=== PATIENT | female | born 1950 | race Asian ===

== ENCOUNTER → 2016-04-29 | Outpatient (CLI) | payer OTHER ==
[~2016-04-29] MED LIST: ADALAT20 MG PO; ASPIRIN E.C. 8181 MG PO; CALCIUM500 MG PO; CARDI-OMEGA1000 MG PO; FOSAMAX70 MG PO; HCTZ 25MG TAB25 MG PO; HCTZ 25MG25 MG PO; LOTENSIN40 MG PO; MECLIZINE12.5 MG PO; VITAMIN D5000 IU PO; ZOCOR10 MG PO; [UNRECOGNIZED DRUG - OTHER] PO
== END ==
LOC: COL.RAD 07:53
DX: D25.9 Leiomyoma of uterus, unspecified (principal); N85.4 Malposition of uterus

== ENCOUNTER → 2019-12-13 | Outpatient (CLI) | payer MEDICARE, OTHER ==
[~2019-12-13] VITALS: Ht 149.9 cm; Wt 45.3 kg
[2019-12-13] VITALS (13 sets, daily range): BP systolic 152–194; BP diastolic 82–106; PULSE 90–105
[~2019-12-13] MED LIST changes: +COCONUT PO; +FIBER GUMMIES2.5 GM PO; +GLUCOSAMINE MSM1 TAB PO; +ONE-A-DAY ESSE1 EACH PO; +VITAMIN B COMPL1 SGL PO; +VITAMIN D 50,1.25 MG; -VITAMIN D5000 IU PO; +VITAMINC250CH PO; +XANAX 0.5MG0.5 MG PO; +ZOCOR 10MG10 MG PO
== END ==
LOC: COL.RAD 06:34
DX: M89.9 Disorder of bone, unspecified (principal)

== ENCOUNTER → 2020-02-13 | Outpatient (CLI) | payer MEDICARE, OTHER | LOC: COL.CARD 13:00 | DX: I08.3 Combined rheumatic disorders of mitral, aortic and tricuspid valves (principal); C34.12 Malignant neoplasm of upper lobe, left bronchus or lung ==

== ENCOUNTER → 2020-03-12 | Outpatient (CLI) | payer MEDICARE, OTHER | LOC: COL.CARD 11:01 | DX: C34.12 Malignant neoplasm of upper lobe, left bronchus or lung (principal) ==

== ENCOUNTER → 2020-10-30 | Outpatient (CLI) | payer MEDICARE, OTHER | LOC: COL.RAD 14:18 | DX: G93.9 Disorder of brain, unspecified (principal); C79.31 Secondary malignant neoplasm of brain | CPT/HCPCS: A9585 ==

== ENCOUNTER 2021-04-29 20:20 | Emergency (ER) | payer MEDICARE, OTHER ==
[~2021-04-29] VITALS: Ht 149.9 cm; Wt 44.1 kg
[2021-04-29 20:23] VITALS: TEMP 98
[2021-04-29 22:02] LABS: BASO % 0.4 % (0.0-2.0); EOS # 0.1 K/mm3 (0.0-0.7); EOS % 1.2 % (0.0-4.0); GRAN # 3.7 K/mm3 (1.4-6.5); HEMOGLOBIN 11.8 g/dl (12.5-16.0); LYMPH # 0.6 K/mm3 (1.2-3.4); LYMPH % 12.6 % (20.0-51.0); MEAN CELL VOLUME 68 fl (80.0-100.0); MEAN CORPUSCULAR HEMOGLOBIN 22 pg (27-31); MEAN CORPUSCULAR HGB CONC 33 g/dl (33.0-37.0); MEAN PLATELET VOLUME 9.4 fl (7.4-10.4); MONO # 0.5 K/mm3 (0.1-0.6); MONO % 10.6 % (1.7-9.3); PLATELET COUNT 138 K/mm3 (130-400); RED BLOOD COUNT 5.31 M/mm3 (4.10-5.30); REDCELL DISTRIBUTION WIDTH-CV 14.6 % (11.5-14.5)
[2021-04-29 22:06] LABS: ALANINE AMINOTRANSFERASE 9 U/L (0-55); ALBUMIN 3.9 gm/dL (3.4-4.8); ALKALINE PHOSPHATASE 41 U/L (40-150); ANION GAP 10 mmol/L (7-16); AST,SGOT 19 U/L (5-34); BILIRUBIN,TOTAL 0.8 mg/dL (0.2-1.2); BLOOD UREA NITROGEN 13 mg/dL (10-20); CALCIUM 8.4 mg/dL (8.4-10.2); CARBON DIOXIDE 20 mmol/L (23-31); CHLORIDE 100 mmol/L (98-107); CREATININE, serum 0.71 mg/dL (0.57-1.11); GLUCOSE 141 mg/dL (70-99); POTASSIUM 3.7 mmol/L (3.5-4.5); SODIUM 130 mmol/L (136-145); TOTAL PROTEIN 6.8 gm/dL (6.2-8.1)
[2021-04-29 22:17] LABS: TROPONIN-I < 0.010 ng/mL (0.00-0.033)
[2021-04-30 01:59] VITALS: BP 125/66; PULSE 71
== END 2021-04-30 01:59 | disposition home or self-care (01) ==
LOC: COL.ER 20:20
PROVIDERS: Personal Emergency Response Attendant
DX: R07.9 Chest pain, unspecified (principal); I10 Essential (primary) hypertension; Z79.899 Other long term (current) drug therapy
CPT/HCPCS: J2270; J2405; Q9967

== ENCOUNTER 2021-05-01 23:10 | Emergency (ER) | payer MEDICARE, OTHER ==
[~2021-05-01] VITALS: Ht 149.9 cm; Wt 59.1 kg
[2021-05-01 23:20] VITALS: TEMP 97.5
[2021-05-02 00:17] LABS: BASO % 0.5 % (0.0-2.0); EOS # 0.1 K/mm3 (0.0-0.7); EOS % 2.1 % (0.0-4.0); GRAN # 2.6 K/mm3 (1.4-6.5); GRAN % 68.5 % (42.2-75.2); HEMOGLOBIN 12.3 g/dl (12.5-16.0); LYMPH # 0.4 K/mm3 (1.2-3.4); LYMPH % 11.5 % (20.0-51.0); MEAN CELL VOLUME 67 fl (80.0-100.0); MEAN CORPUSCULAR HEMOGLOBIN 23 pg (27-31); MEAN CORPUSCULAR HGB CONC 34 g/dl (33.0-37.0); MEAN PLATELET VOLUME 9.7 fl (7.4-10.4); MONO # 0.6 K/mm3 (0.1-0.6); MONO % 17.1 % (1.7-9.3); PLATELET COUNT 141 K/mm3 (130-400); RED BLOOD COUNT 5.46 M/mm3 (4.10-5.30); REDCELL DISTRIBUTION WIDTH-CV 14.6 % (11.5-14.5)
[2021-05-02 00:19] LABS: HEMATOCRIT 36.6 % (37.0-47.0)
[2021-05-02 00:32] LABS: ALBUMIN 4.1 gm/dL (3.4-4.8); BILIRUBIN,TOTAL 0.9 mg/dL (0.2-1.2); CALCIUM 8.9 mg/dL (8.4-10.2); CREATININE, serum 0.6 mg/dL (0.57-1.11); POTASSIUM 3.8 mmol/L (3.5-4.5); TOTAL PROTEIN 7.4 gm/dL (6.2-8.1)
[2021-05-02 00:40] LABS: TROPONIN-I 0.016 ng/mL (0.00-0.033)
[2021-05-02] MEDS ORDERED: TOPROL XL 25MG25 MG PO (01:03)
[2021-05-02 01:38] VITALS: BP 172/86; PULSE 98
== END 2021-05-02 01:38 | disposition home or self-care (01) ==
LOC: COL.ER 23:10
PROVIDERS: Emergency Medicine
DX: I10 Essential (primary) hypertension (principal); E87.1 Hypo-osmolality and hyponatremia; C34.30 Malignant neoplasm of lower lobe, unspecified bronchus or lung; Z79.899 Other long term (current) drug therapy
CPT/HCPCS: J7030

== ENCOUNTER → 2021-08-19 | Outpatient (CLI) | payer MEDICARE, OTHER ==
[~2021-08-19] MED LIST changes: +TOPROL XL 25MG25 MG PO
== END ==
LOC: COL.RAD 07:50
DX: C34.90 Malignant neoplasm of unspecified part of unspecified bronchus or lung (principal); C79.31 Secondary malignant neoplasm of brain; R90.82 White matter disease, unspecified
CPT/HCPCS: A9575

== ENCOUNTER → 2021-11-27 | Outpatient (CLI) | payer MEDICARE, OTHER | LOC: COL.RAD 13:44 | DX: C34.12 Malignant neoplasm of upper lobe, left bronchus or lung (principal); G31.1 Senile degeneration of brain, not elsewhere classified; C79.31 Secondary malignant neoplasm of brain | CPT/HCPCS: A9575 ==